=== PATIENT | female | born 1950 | race Caucasian/White ===

== ENCOUNTER 2021-06-21 11:03 | Outpatient (REF) | payer MEDICARE, SELFPAY ==
[2021-06-21 13:19] LABS: Ferritin 54 ng/mL (10-250)
== END 2021-06-21 11:04 | disposition home or self-care (01) ==
LOC: HO.LAB 11:03
PROVIDERS: PCP Internal Medicine; Visit Provider Psychiatry & Neurology Neurology
DX: G62.9 Polyneuropathy, unspecified (principal)
CPT/HCPCS: 36415; 82728

== ENCOUNTER → 2025-11-04 11:56 | Outpatient (BNVA) | payer MEDICARE, SELFPAY | PROVIDERS: PCP Internal Medicine; Visit Provider Psychiatry & Neurology Neurology | DX: G25.81 Restless legs syndrome (principal); G62.9 Polyneuropathy, unspecified | CPT/HCPCS: 99212 ==

== ENCOUNTER 2025-11-04 12:14 | Outpatient (AMB) | payer MEDICARE, SELFPAY ==
--- NOTE | 2025-11-04 12:33 | MHC.OFFVIS ---
Intake Visit Reasons: 6m Allergies No Known Allergies Allergy (Verified 11/04/25 12:33) Medication List - Last Reconciled 11/04/25 by Lauren Gordillo CNP atorvastatin 10 mg PO DAILY gabapentin 300 mg PO TID meloxicam 15 mg PO DAILY 30 days metoprolol succinate ER 50 mg PO DAILY pramipexole 0.5 mg PO BID HPI Comments Details: She was having more pain in feet, mostly at night. Pain was burning-type and occasional stabbing or shooting-type. She sometimes woke during the night and had trouble falling back to sleep because of pain. Numbness and tingling from mid-shins down unchanged, most noticeable in feet. She was having some low back and left hip pain. She apparently had left hip XR that showed OA and had appointment with orthopedics scheduled for 11/2025. She was not exercising or walking as much recently because of the pain. No falls. She was also having some more restlessness in legs. Restless feeling could start up in the afternoon when sitting and trying to relax. She was going to [facility] for the holidays. Numbness and tingling from mid-shins down. Symptoms worse at night. Gets aching-type pain at times. Numbness/tingling originally started years ago in the bottom of her feet. Hips bother at times. Had J pouchitis. She has lumbar disc disease and had to decompressive surgery for lumbar spine in the summer of 2020. Has a history of ulcerative colitis and dysplasia leading to total colectomy in 2001. Starting in 2015, she's had some persistent numbness and tingling in the soles of her feet particularly in the toes and balls of the foot not so far in the heel and no symptoms of the dorsum of the foot. The tingling and numbness has been diagnosed as neuropathy by her bilingual elementary school teacher. She is not bothered by it since she sleeps well and the doesn't restrict her walking it in any way. Around 2019, she's also had the feeling of restlessness in the legs and has to constantly move them and it was affecting her sleep till she started pramipexole 0.5 mg around 7:30 PM in the last year and that has helped her sleep but to her she feels some restlessness and late afternoon, when she is trying to sit and relax and watch TV. She was found to have a low B12 level and has been taking some B-12 supplements. Serum iron level is not available. Her father and brother also have restless leg syndrome. [facility] Medical History (Updated 11/04/25 @ 12:37 by Lauren Gordillo CNP) Lumbar spinal stenosis Ulcerative colitis Surgical History (Updated 11/04/25 @ 12:37 by Lauren Gordillo CNP) S/P total colectomy Status post lumbar spine surgery for decompression of spinal cord Review of Systems Const Denies chills, Denies daytime sleepiness, Denies difficulty sleeping, Denies fatigue, Denies fever(s), Denies frequent falls, Denies headache(s), Denies increased appetite, Denies poor appetite, Denies snoring, Denies weakness, Denies weight gain and Denies weight loss Eyes Denies loss of vision ENT Denies vertigo, Denies dizziness, Denies headache(s) and Denies neck pain Card Denies chest pain at rest, Denies chest pain with activity, Denies syncope, Denies leg edema, Denies palpitations, Denies dyspnea and Denies dyspnea on exertion Resp Denies cough, Denies dyspnea, Denies dyspnea on exertion and Denies snoring GI Denies abdominal pain, Denies constipation, Denies heartburn, Denies diarrhea and Denies nausea Denies urinary frequency, Denies urinary incontinence and Denies urinary urgency Musc Denies abnormal gait, Denies back pain, Denies myalgias, Denies arthralgias, Denies neck pain, Reports numbness and Reports tingling Neuro Denies abnormal gait, Denies vertigo, Denies dizziness, Denies syncope, Denies frequent falls, Denies headache(s), Denies lack of coordination, Denies loss of vision, Denies memory loss, Reports numbness, Denies Other visual disturbances, Reports restless legs, Denies seizure-like activity, Reports tingling, Denies paresthesias, Denies tremor(s) and Denies weakness Psych Denies anxiety, Denies depression, Denies auditory hallucinations, Denies memory loss and Denies visual hallucinations Endo Denies fatigue and Denies palpitations Physical Exam Const Other: General Appearance:? normal, in no acute distress. Heart:? S1, S2 normal, no murmurs. Lungs:? clear anteriorly and posteriorly. Musculoskeletal:? normal. Extremities:? no edema. Psych:? alert, oriented, cognitive function intact, cooperative with exam. Neuro Other: Abnormal Neurological Findings:?Blunting of pinprick in toes. Preserved reflexes and vibration. Mental Status: alert and oriented X 3. Normal attention, orientation, memory, and affect. Cranial Nerves: Pupils are equal, round, and reactive to light. External ocular muscles are intact. Visual nguyễn are full, no ptosis. Face is symmetrical, no facial weakness or droop. Facial sensations are normal. Tongue protrudes in midline. Palate elevates symmetrically. Shoulder shrugging is normal Motor Examination: Normal muscle tone, bulk and strength. No atrophy or fasciculations. No drift of the extended upper extremities. DTR 2+. Plantars are flexor. Sensory Exam: As above. Coordination: No ataxia. No titubation. Gait Exam: Within normal limits. Cerebellar Signs: [id number] is okay. Extrapyramidal System: No tremor, rigidity with normal facial expressions. No bradykinesia. No bradyphrenia. Normal arm swing and posture. No propulsion or retropulsion. Speech: Normal. Results Reviewed Results Reviewed: NCV/EMG LE 03/18/24: Low amplitude sensory potentials in the lower extremities, suggestive of an early sensory neuropathy. EMG of the L4-S1 innervated muscles is consistent with neuropathic changes. No significant changes compared to 2020 study. Ferritin ok Assessment & Plan Assessment & Plan (1) Sensory neuropathy: Code(s): G62.9 - Polyneuropathy, unspecified Category: Medical Plan: Increase gabapentin 300mg 1 capsule twice a day and 2 capsules at bedtime. Continue meloxicam 15mg 1 tablet daily. Stay physically active. Follow up in 3 months or sooner as needed. (2) Restless leg syndrome: Code(s): G25.81 - Restless legs syndrome Category: Medical Plan: Continue pramipexole 0.5mg 1 tablet twice a day. Plan Prednisone taper, use/side effects reviewed. Medications: New gabapentin 300 mg orally 1 capsule twice a day and 2 capsules at bedtime; 360 caps 1RF 90 days pramipexole 0.5 mg PO BID 180 tabs 1RF 90 days prednisone 10 mg orally 3 tabs x3 days, 2 tabs x2 days, 1 tab x1 day; 14 tabs 0RF 6 days Coding Level of Care Code Est Pt Level 4 (44689) Diagnoses Sensory neuropathy G62.9 Restless leg syndrome G25.81
== END 2025-11-04 12:53 | disposition home or self-care (01) ==
LOC: HO.HSM 12:15
PROVIDERS: PCP Internal Medicine; Visit Provider Registered Nurse
DX: G62.9 Polyneuropathy, unspecified (principal); G25.81 Restless legs syndrome
CPT/HCPCS: 99214